=== PATIENT | male | born 1970 | race Caucasian/White ===

== ENCOUNTER → 2017-01-25 | Outpatient (CLI) | payer BC ==
--- NOTE | ~2017-01-25 | CR21 ---
[facility]. [facility] A Service of [facility] & [facility] RADIOLOGY TEXT RESULTS PATIENT: ANDI HAMPTON LOCATION: [facility] : 68 UNIT #: [id number] AGE: [address]: Ryder Motta MD SEX: M ORDER DR: [id number] [address] [address] [id number] O MR#: [id number] Acc #: [id number] NAME: ANDI HAMPTON. : 1970 SEX: M STUDY DATE/TIME: 01/25/2017 12:48 UNIT: [facility] ROOM: STUDY DESCRIPTION: CR Ankle Min 3 Views Rt Attending Physician: Ryder Motta M.D. Referring Physician: Ryder Motta M.D. Ordering Physician: Ryder Motta M.D. Primary Care Physician: Ryder Motta M.D. MEDICAL IMAGING REPORT This report is preliminary unless electronic signature is present. EXAM Right ankle 3 views, 01/25/2017 HISTORY Right ankle pain and edema for 2 years with no known trauma. FINDINGS AP, lateral, and oblique projections of the ankle show satisfactory integrity of the joint mortise with a smooth articular surface. There is no identifiable fracture, dislocation, or radiopaque foreign body. IMPRESSION Normal ankle. Dictated by... Adi Lin M.D. THIS IS AN ELECTRONICALLY VERIFIED REPORT Adi Lin M.D. at 01/26/2017 2:17 PM [email or web address]/[email or web address] TD: 01/25/2017 21:54 JOB #: [id number] MEDICAL IMAGING REPORT Page 1 of 1
--- NOTE | ~2017-01-25 | CR230 ---
[facility]. [facility] A Service of [facility] & [facility] RADIOLOGY TEXT RESULTS PATIENT: ANDI HAMPTON LOCATION: [facility] : 68 UNIT #: [id number] AGE: [address]: Ryder Motta MD SEX: M ORDER DR: [id number] [address] [address] [id number] O MR#: [id number] Acc #: [id number] NAME: ANDI HAMPTON. : 1970 SEX: M STUDY DATE/TIME: 01/25/2017 12:48 UNIT: [facility] ROOM: STUDY DESCRIPTION: CR Shoulder Min 2 View Rt Attending Physician: Ryder Motta M.D. Referring Physician: Ryder Motta M.D. Ordering Physician: Ryder Motta M.D. Primary Care Physician: Ryder Motta M.D. MEDICAL IMAGING REPORT This report is preliminary unless electronic signature is present. EXAM Right shoulder, 3 views; 01/25/2017. HISTORY Right shoulder pain for 3 months. No known trauma. FINDINGS AP view with internal and external rotation of the shoulder girdle shows satisfactory relationship of the humeral head and glenoid fossa. The joint space is normal. There is no identifiable fracture or dislocation or bony destructive process about the shoulder girdle anatomy. The acromioclavicular joint is normal. There is no radiopaque foreign body in the region. IMPRESSION Normal right shoulder. Dictated by... Adi Lin M.D. THIS IS AN ELECTRONICALLY VERIFIED REPORT Adi Lin M.D. at 01/26/2017 2:17 PM JUANCARLOS/marissa TD: 01/25/2017 21:43 JOB #: [id number] MEDICAL IMAGING REPORT Page 1 of 1
--- NOTE | ~2017-01-25 | CR63 ---
[facility]. [facility] A Service [facility] RADIOLOGY TEXT RESULTS PATIENT: ANDI HAMPTON LOCATION: [facility] : 68 UNIT #: [id number] AGE: [address]: Ryder Motta MD SEX: M ORDER DR: [id number] [place] [id number] O MR#: [id number] Acc #: [id number] NAME: ANDI HAMPTON. : 1970 SEX: M STUDY DATE/TIME: 01/25/2017 12:48 UNIT: [facility] ROOM: STUDY DESCRIPTION: CR Chest 2 View Attending Physician: Ryder Motta M.D. Referring Physician: Ryder Motta M.D. Ordering Physician: Ryder Motta M.D. Primary Care Physician: Ryder Motta M.D. MEDICAL IMAGING REPORT This report is preliminary unless electronic signature is present. EXAM Chest, PA and lateral; 01/25/2017. HISTORY Right shoulder pain for 3 months. Tobacco use. FINDINGS PA and lateral examination of the chest upright shows a good expansion of the parenchyma with a normal distribution of the pulmonary vascularity. There is no indication of congestion, effusion, infiltrate, tumor, or nodular density. The pleural reflections and diaphragmatic contours are normal. The cardiac silhouette and mediastinal anatomy is within normal limits. IMPRESSION Normal PA and lateral chest. Dictated by... Adi Lin M.D. THIS IS AN ELECTRONICALLY VERIFIED REPORT Adi Lin M.D. at 01/26/2017 2:16 PM JUANCARLOS/marissa TD: 01/25/2017 21:44 JOB #: [id number] MEDICAL IMAGING REPORT [facility] A [facility] RADIOLOGY TEXT RESULTS PATIENT: ANDI HAMPTON LOCATION: [facility] : 68 UNIT #: [id number] AGE: [address]: Ryder Motta MD SEX: M ORDER DR: Page 1 of 1
== END | disposition home or self-care (01) ==
LOC: SRAD 12:38
DX: M25.511 Pain in right shoulder (principal); M25.571 Pain in right ankle and joints of right foot; Z72.0 Tobacco use
CPT/HCPCS: 71020; 73030; 73610